=== PATIENT | female | born 1995 | race American Indian/Alaskan Native ===

== ENCOUNTER 2019-11-02 19:06 | Inpatient (IN) | payer BC ==
[~2019-11-02] VITALS: Ht 167.6 cm; Wt 100.0 kg
[2019-11-02] MEDS ORDERED: acetaminophen 325mg tablet PO ONE (19:10)
[2019-11-02] MEDS ORDERED: normal saline 1000ml 1,000 ML IVB ONE (19:47)
[2019-11-02 20:05] LABS: BASOPHILS % (AUTO) 0.1 % (0-1); EOSINOPHILS % (AUTO) 0 % (0-6); HEMATOCRIT 43.9 % (35.0-45.0); LYMPHOCYTES # (AUTO) 0.9 X10'3 (1.1-4.8); LYMPHOCYTES % (AUTO) 4.9 % (21-51); MEAN CORPUSCULAR HEMOGLOBIN 29.7 PG (27.0-31.0); MEAN CORPUSCULAR HGB CONC 34.1 g/dL (33.0-36.5); MEAN CORPUSCULAR VOLUME 87.2 FL (78-98); MEAN PLATELET VOLUME 9.1 FL (7.4-10.4); MONOCYTES # (AUTO) 0.7 X10'3 (0-0.9); MONOCYTES % (AUTO) 4.2 % (2-12); NEUTROPHILS # (AUTO) 15.8 X10'3 (1.8-7.7); NEUTROPHILS % (AUTO) 90.8 % (42-75); PLATELET COUNT 220 X10'3 (140-440); RED BLOOD COUNT 5.04 X10'6 (4.20-5.60); RED CELL DISTRIBUTION WIDTH 13.9 % (11.5-14.5); WHITE BLOOD COUNT 17.4 X10'3 (4.5-11.0)
[2019-11-02 20:20] LABS: ALANINE AMINOTRANSFERASE 85 U/L (12-78); ALBUMIN/GLOBULIN RATIO 0.7 (1.1-1.5); ALKALINE PHOSPHATASE 122 IU/L (46-116); ANION GAP 14 (8-16); ASPARTATE AMINO TRANSFERASE 48 U/L (10-37); BILIRUBIN,TOTAL 2.2 MG/DL (0.1-1.0); BLOOD UREA NITROGEN 13 MG/DL (7-18); BUN/CREATININE RATIO 11.2 (6.6-38.0); CALCIUM 9.5 MG/DL (8.5-10.1); CHLORIDE 94 MMOL/L (99-107); CREATININE 1.16 MG/DL (0.40-0.90); GLUCOSE 179 MG/DL (70-104); POTASSIUM 3.3 MMOL/L (3.5-5.1); SODIUM 132 MMOL/L (135-145); TOTAL CARBON DIOXIDE 24.4 MMOL/L (24-32); TOTAL PROTEIN 9.5 G/DL (6.4-8.2); eGFR 56 ML/MIN
[2019-11-02] MEDS ORDERED: piperacillin/tazo 3.375gm/50ml 50 ML IV ONE (20:40)
[2019-11-02] MEDS ORDERED: normal saline 1000ML IV soln IVB ONE (20:45)
--- NOTE | 2019-11-02 20:49 | NUR ---
U/S CALLED BACK AT 20:[address] IN
[2019-11-02 20:50] LABS: C-REACTIVE PROTEIN 19.91 MG/DL (0.0-0.5); LACTATE DEHYDROGENASE 228 U/L (81-234)
[2019-11-02 22:17] LABS: LIPASE 53 U/L (73-393)
[2019-11-02] MEDS ORDERED: morphine 4 MG/ML inj SYRINge IV ONE (22:25)
[2019-11-02] MEDS ORDERED: ondansetron/PF 4mg/2ml inj IV ONE (22:50)
[2019-11-02] MEDS ORDERED: magnesium hydroxide 30ml (MOM) UD suspension PO PRN (23:15)
[2019-11-02] MEDS ORDERED: magnesium 4gm in 100ml NS 100 ML IV PRN (23:15)
[2019-11-02] MEDS ORDERED: mag hydrox/Alum hydrox/simeth 30ml oral suspension PO PRN (23:15)
[2019-11-02] MEDS ORDERED: ondansetron/PF 4mg/2ml inj IV PRN (23:15)
[2019-11-02] MEDS ORDERED: potassium CL 10mEq/100ml bag 100 ML IV PRN ×2 (23:15)
[2019-11-02] MEDS ORDERED: morphine 2 MG/ML inj. syringe IV PRN ×2 (23:15)
[2019-11-02] MEDS ORDERED: HYDROcodone/acetaminophen 5mg/325mg tablet PO PRN (23:15)
[2019-11-02] MEDS ORDERED: acetaminophen 325mg tablet PO PRN ×2 (23:15)
[2019-11-02] MEDS ORDERED: potassium Cl 20 mEq SR tablet PO PRN (23:15)
[2019-11-02] MEDS ORDERED: magnesium Cl slow-release 64mg tablet PO PRN (23:15)
[2019-11-02] MEDS ORDERED: magnesium 2GM in 50ml NS 50 ML IV PRN (23:15)
[2019-11-02 23:29] LABS: URINE HCG NEGATIVE (NEG)
[2019-11-02 23:41] LABS: CLARITY,URINE SLIGHTLY CLOUDY (Clear); COLOR,URINE YELLOW (Yellow); GLUCOSE, URINE NEGATIVE (Neg); KETONES,URINE TRACE mg/dl (Neg); LEUKOCYTE ESTERASE ,URINE TRACE (Neg); NITRITES, URINE NEGATIVE (Neg); OCCULT BLOOD,URINE MODERATE (Neg); PROTEIN,URINE NEGATIVE (Neg)
[2019-11-02] MEDS: normal saline 1000ml 1,000 ML IV SCH (23:41)
[2019-11-02 23:42] LABS: UA COLLECTION TYPE CLN CATCH MIDSTREAM
[2019-11-02] MEDS: piperacillin/tazo 3.375gm/50ml 50 ML IV SCH (23:42)
[2019-11-02] MEDS ORDERED: NO HOME MEDS (23:45)
[2019-11-03 00:11] LABS: BACTERIA,URINE 1+ /HPF (Neg); MUCUS STRANDS FEW /LPF (Neg); SQUAMOUS EPITHELIAL CELL,UR MANY /LPF (FEW); WBC,URINE 0-4 /HPF (0-4)
[2019-11-03 01:30] VITALS: BP 136/74
[2019-11-03 04:47] LABS: BASOPHILS % (AUTO) 0.1 % (0-1); EOSINOPHILS % (AUTO) 0 % (0-6); HEMATOCRIT 35.7 % (35.0-45.0); HEMOGLOBIN 11.9 g/dl (12.0-16.0); LYMPHOCYTES # (AUTO) 0.9 X10'3 (1.1-4.8); LYMPHOCYTES % (AUTO) 7.4 % (21-51); MEAN CORPUSCULAR HEMOGLOBIN 29.1 PG (27.0-31.0); MEAN CORPUSCULAR HGB CONC 33.2 g/dL (33.0-36.5); MEAN CORPUSCULAR VOLUME 87.6 FL (78-98); MEAN PLATELET VOLUME 8.9 FL (7.4-10.4); MONOCYTES # (AUTO) 0.9 X10'3 (0-0.9); MONOCYTES % (AUTO) 7.5 % (2-12); NEUTROPHILS # (AUTO) 10.1 X10'3 (1.8-7.7); PLATELET COUNT 175 X10'3 (140-440); RED BLOOD COUNT 4.07 X10'6 (4.20-5.60); RED CELL DISTRIBUTION WIDTH 13.9 % (11.5-14.5); WHITE BLOOD COUNT 11.9 X10'3 (4.5-11.0)
[2019-11-03 04:57] LABS: ALANINE AMINOTRANSFERASE 60 U/L (12-78); ALBUMIN 2.9 G/DL (3.4-5.0); ALBUMIN/GLOBULIN RATIO 0.7 (1.1-1.5); ALKALINE PHOSPHATASE 93 IU/L (46-116); ANION GAP 9 (8-16); ASPARTATE AMINO TRANSFERASE 31 U/L (10-37); BILIRUBIN,TOTAL 1.4 MG/DL (0.1-1.0); BLOOD UREA NITROGEN 8 MG/DL (7-18); CALCIUM 8.1 MG/DL (8.5-10.1); CHLORIDE 105 MMOL/L (99-107); CHOL/HDL RATIO 6.5 (0.00-4.99); CHOLESTEROL 150 MG/DL (0-200); GLUCOSE 137 MG/DL (70-104); HDL CHOLESTEROL 23 MG/DL (35-60); LDL CHOLESTEROL 98 MG/DL (50-100); MAGNESIUM 1.8 MG/DL (1.5-2.4); POTASSIUM 3.3 MMOL/L (3.5-5.1); SODIUM 137 MMOL/L (135-145); TOTAL CARBON DIOXIDE 22.7 MMOL/L (24-32); TRIGLYCERIDES 99 MG/DL (20-135); eGFR 87 ML/MIN
--- NOTE | 2019-11-03 05:36 | NUR ---
NURSING ASSESSMENT REVIEWED Addendum: 11/03/19 at 0536 by Liya Mancuso RN Amended: Links added.
--- NOTE | 2019-11-03 06:36 | NUR ---
Problems reprioritized. Patient report given, questions answered & plan of care reviewed with Emmie DANIELLE.
--- NOTE | 2019-11-03 06:39 | NUR ---
Patient in room [facility]. I have received report from howard simmons and had the opportunity to ask questions and assume patient care.
[2019-11-03 07:00] VITALS: BP 128/72
[2019-11-03] MEDS: piperacillin/tazo 3.375gm/50ml 50 ML IV SCH ×2 (07:53→16:35)
[2019-11-03] MEDS: pantoprazole 40mg Tablet.DR PO SCH (07:55)
[2019-11-03] MEDS: potassium Cl 20 mEq SR tablet PO PRN ×3 (07:55→20:46)
[2019-11-03] MEDS: K and/or MAG REPLACEMENT MC SCH ×2 (08:00→20:00)
[2019-11-03] MEDS: heparin, porcine 5000 units/ml vial SQ SCH ×2 (08:00→20:46)
[2019-11-03] MEDS: normal saline 1000ml 1,000 ML IV SCH ×2 (08:05→16:38)
[2019-11-03] MEDS ORDERED: sincalide inj 2 MCG in normal saline 50ml IV soln 50 ML IV ONE (11:35)
[2019-11-03] MEDS: HYDROcodone/acetaminophen 10/325mg tab PO PRN (16:34)
--- NOTE | 2019-11-03 17:49 | NUR ---
PATIENT C/O HEADACHE. MEDICATED X2 WITH EFFECT.SEEN BY DR CARTER AND DR STOVER. WENT FOR HIDA SCAN. RESTING NOW WITH COLD WASH CLOTH TO FOREHEAD. WILL CONTINUE TO MONITOR. NPO AFTER MIDNIGHT
[2019-11-03 18:00] VITALS: BP 122/71
--- NOTE | 2019-11-03 18:30 | NUR ---
Patient in room [facility]. I have received report from ROSA and had the opportunity to ask questions and assume patient care. ASSUMED CARE OF PT WITH RN STUDENT EDIN Balderas
--- NOTE | 2019-11-03 18:49 | NUR ---
Problems reprioritized. Patient report given, questions answered & plan of care reviewed with DEBORAH DANIELLE.
[2019-11-03 19:00] VITALS: BP 122/71
[2019-11-04] VITALS: BP 126/78
[2019-11-04] MEDS: piperacillin/tazo 3.375gm/50ml 50 ML IV SCH ×4 (00:14→23:47)
[2019-11-04] MEDS: normal saline 1000ml 1,000 ML IV SCH ×4 (00:18→21:34)
--- NOTE | 2019-11-04 04:08 | NUR ---
Student Medication Administration: For this medication-pass time frame, all medication were reviewed, dispensed, administered and documented per hospital policy by EDIN Balderas
--- NOTE | 2019-11-04 04:08 | NUR ---
Student documentation: I have reviewed and agree with all interventions, assessments performed and documented by EDIN Balderas
[2019-11-04 04:58] LABS: BASOPHILS % (AUTO) 0.1 % (0-1); EOSINOPHILS % (AUTO) 0 % (0-6); HEMATOCRIT 36.3 % (35.0-45.0); HEMOGLOBIN 12.2 g/dl (12.0-16.0); LYMPHOCYTES # (AUTO) 1.4 X10'3 (1.1-4.8); MEAN CORPUSCULAR HEMOGLOBIN 29.5 PG (27.0-31.0); MEAN CORPUSCULAR HGB CONC 33.7 g/dL (33.0-36.5); MEAN CORPUSCULAR VOLUME 87.7 FL (78-98); MONOCYTES # (AUTO) 0.6 X10'3 (0-0.9); NEUTROPHILS % (AUTO) 70.9 % (42-75); PLATELET COUNT 148 X10'3 (140-440); RED BLOOD COUNT 4.13 X10'6 (4.20-5.60); RED CELL DISTRIBUTION WIDTH 14.2 % (11.5-14.5)
[2019-11-04 05:12] LABS: ALANINE AMINOTRANSFERASE 63 U/L (12-78); ALBUMIN/GLOBULIN RATIO 0.7 (1.1-1.5); ALKALINE PHOSPHATASE 95 IU/L (46-116); ANION GAP 11 (8-16); ASPARTATE AMINO TRANSFERASE 45 U/L (10-37); BILIRUBIN,TOTAL 0.9 MG/DL (0.1-1.0); BLOOD UREA NITROGEN 6 MG/DL (7-18); BUN/CREATININE RATIO 7.3 (6.6-38.0); CALCIUM 8.7 MG/DL (8.5-10.1); CHLORIDE 99 MMOL/L (99-107); CREATININE 0.82 MG/DL (0.40-0.90); GLUCOSE 113 MG/DL (70-104); MAGNESIUM 1.9 MG/DL (1.5-2.4); POTASSIUM 3.7 MMOL/L (3.5-5.1); SODIUM 133 MMOL/L (135-145); TOTAL CARBON DIOXIDE 23.2 MMOL/L (24-32); TOTAL PROTEIN 7.5 G/DL (6.4-8.2); eGFR 84 ML/MIN
--- NOTE | 2019-11-04 06:41 | NUR ---
Patient in room [facility]. I have received report from LOLIS CABRERA and had the opportunity to ask questions and assume patient care.
[2019-11-04] MEDS: pantoprazole 40mg Tablet.DR PO SCH (07:40)
[2019-11-04] MEDS: HYDROcodone/acetaminophen 10/325mg tab PO PRN (07:41)
[2019-11-04] MEDS: heparin, porcine 5000 units/ml vial SQ SCH ×2 (07:51→21:33)
[2019-11-04 08:00] VITALS: BP 120/81
[2019-11-04] MEDS: K and/or MAG REPLACEMENT MC SCH ×2 (08:00→20:00)
[2019-11-04 11:00] VITALS: BP 100/62
--- NOTE | 2019-11-04 18:30 | NUR ---
Patient in room [facility]. I have received report from [place] and had the opportunity to ask questions and assume patient care. ASSUMED CARE OF PT WITH RN STUDENT EDIN Balderas
--- NOTE | 2019-11-04 18:36 | NUR ---
Problems reprioritized. Patient report given, questions answered & plan of care reviewed with LOLIS CABRERA.
[2019-11-04 20:00] VITALS: BP 123/76
[2019-11-04] MEDS: lactobacillus rhamnosus 10,000 MMU CELLS/CAPSULE PO SCH (21:40)
[2019-11-05] VITALS (23 sets, daily range): BP systolic 106–137; BP diastolic 66–89
--- NOTE | 2019-11-05 03:32 | NUR ---
Student documentation: I have reviewed and agree with all interventions, assessments performed and documented by EDIN Solares Medication Administration: For this medication-pass time frame, all medication were reviewed, dispensed, administered and documented per hospital policy by EDIN Balderas
[2019-11-05 05:07] LABS: BASOPHILS % (AUTO) 0.2 % (0-1); EOSINOPHILS % (AUTO) 0.3 % (0-6); HEMATOCRIT 36.9 % (35.0-45.0); HEMOGLOBIN 12.3 g/dl (12.0-16.0); LYMPHOCYTES # (AUTO) 1.6 X10'3 (1.1-4.8); LYMPHOCYTES % (AUTO) 34.6 % (21-51); MEAN CORPUSCULAR HEMOGLOBIN 29.4 PG (27.0-31.0); MEAN CORPUSCULAR HGB CONC 33.4 g/dL (33.0-36.5); MEAN CORPUSCULAR VOLUME 87.8 FL (78-98); MONOCYTES # (AUTO) 0.5 X10'3 (0-0.9); MONOCYTES % (AUTO) 11.4 % (2-12); NEUTROPHILS # (AUTO) 2.4 X10'3 (1.8-7.7); NEUTROPHILS % (AUTO) 53.5 % (42-75); PLATELET COUNT 165 X10'3 (140-440); RED CELL DISTRIBUTION WIDTH 14.1 % (11.5-14.5); WHITE BLOOD COUNT 4.6 X10'3 (4.5-11.0)
[2019-11-05 05:11] LABS: ALANINE AMINOTRANSFERASE 82 U/L (12-78); ALBUMIN 2.8 G/DL (3.4-5.0); ALBUMIN/GLOBULIN RATIO 0.6 (1.1-1.5); ALKALINE PHOSPHATASE 99 IU/L (46-116); ANION GAP 8 (8-16); ASPARTATE AMINO TRANSFERASE 65 U/L (10-37); BILIRUBIN,TOTAL 0.5 MG/DL (0.1-1.0); BLOOD UREA NITROGEN 7 MG/DL (7-18); BUN/CREATININE RATIO 8.9 (6.6-38.0); CALCIUM 8.5 MG/DL (8.5-10.1); CHLORIDE 103 MMOL/L (99-107); CREATININE 0.79 MG/DL (0.40-0.90); GLUCOSE 102 MG/DL (70-104); MAGNESIUM 2.2 MG/DL (1.5-2.4); POTASSIUM 3.4 MMOL/L (3.5-5.1); SODIUM 136 MMOL/L (135-145); TOTAL CARBON DIOXIDE 24.6 MMOL/L (24-32); TOTAL PROTEIN 7.2 G/DL (6.4-8.2); eGFR 88 ML/MIN
[2019-11-05] MEDS: normal saline 1000ml 1,000 ML IV SCH ×3 (05:15→23:16)
--- NOTE | 2019-11-05 06:22 | NUR ---
Problems reprioritized. Patient report given, questions answered & plan of care reviewed with SONDRA.
[2019-11-05] MEDS ORDERED: ringers solution, lacted 1,000 ML IV SCH (06:31)
[2019-11-05] MEDS ORDERED: morphine 4 MG/ML inj SYRINge IV PRN (06:35)
[2019-11-05] MEDS ORDERED: labetalol 20mg/4ml (5mg/ml) syringe IV PRN (06:35)
[2019-11-05] MEDS ORDERED: morphine 2 MG/ML inj. syringe IV PRN (06:35)
[2019-11-05] MEDS ORDERED: fentaNYL/PF 50MCG/1 ML 2ML syringe IV PRN ×4 (06:35)
[2019-11-05] MEDS ORDERED: ondansetron/PF 4mg/2ml inj IV PRN (06:35)
[2019-11-05] MEDS ORDERED: hydrALAZINE 20mg/ml inj. IV PRN (06:35)
--- NOTE | 2019-11-05 06:36 | NUR ---
Received report from Larissa DANIELLE
[2019-11-05] MEDS: heparin, porcine 5000 units/ml vial SQ SCH ×2 (06:43→19:53)
[2019-11-05] MEDS: pantoprazole 40mg Tablet.DR PO SCH (06:43)
[2019-11-05] MEDS: lactobacillus rhamnosus 10,000 MMU CELLS/CAPSULE PO SCH ×2 (06:43→19:52)
[2019-11-05] MEDS: piperacillin/tazo 3.375gm/50ml 50 ML IV SCH ×2 (08:03→18:47)
[2019-11-05] MEDS: K and/or MAG REPLACEMENT MC SCH ×2 (08:40→19:47)
[2019-11-05] MEDS ORDERED: INDOCYANINE GREEN 25 MG/10 ML VIAL IV ONE (09:30)
[2019-11-05] MEDS ORDERED: BUPIVAcaine/PF 2.5 mg/ml (0.25%) 30ml vial ONE (11:46)
[2019-11-05] MEDS ORDERED: LIDOcaine 1% 30ml preserv. free vial ONE (11:46)
--- NOTE | 2019-11-05 14:04 | NUR ---
RECIEVED FROM OR VIA BED ACCOMPANIED BY ANESTHESIOLOGIST DR LEARY, REPORT GIVEN. BANDAIDS X4 TO ABD CDI, 20 GAUGE PIV RUE PATENT AND RUNNING LR AT 100 ML/HR. MCKENNA, AWAKE AND ALERT, DENIES PAIN, ABD SOFT, VSS.
[2019-11-05] MEDS ORDERED: HYDROcodone/acetaminophen 10/325mg tab PO PRN (14:20)
[2019-11-05] MEDS ORDERED: HYDROcodone/acetaminophen 5mg/325mg tablet PO PRN (14:20)
--- NOTE | 2019-11-05 15:44 | NUR ---
TRANSFERRED VIA BED ACCOMPANIED BY MYSELF, REPORT GIVEN. BANDAIDS X4 TO ABD CDI, 20 GAUGE PIV RAC PATENT AND RUNNING LR AT 100 ML/HR. MCKENNA, AWAKE AND ALERT, DENIES PAIN, ABD SOFT, VSS. PAIN LEVEL AT 4. LEFT IN CARE OF PLAYBACK OPERATOR
--- NOTE | 2019-11-05 17:40 | NUR ---
Patient arrived to the unit, stable, walked to bed adlib and steady on her feet. Addendum: 11/05/19 at 1741 by Lakeshia Wray RN Wrong patient
--- NOTE | 2019-11-05 18:31 | NUR ---
Patient in room [facility]. I have received report from Lakeshia DANIELLE and had the opportunity to ask questions and assume patient care.
--- NOTE | 2019-11-05 18:36 | NUR ---
Problems reprioritized. Patient report given, questions answered & plan of care reviewed with Lidia DANIELLE.
[2019-11-05] MEDS: potassium Cl 20 mEq SR tablet PO PRN (19:52)
[2019-11-05] MEDS: HYDROcodone/acetaminophen 10/325mg tab PO PRN (22:40)
[2019-11-06] MEDS: piperacillin/tazo 3.375gm/50ml 50 ML IV SCH ×2 (00:09→07:50)
[2019-11-06 00:19] VITALS: BP 111/75
[2019-11-06 04:00] VITALS: BP 100/66
[2019-11-06] MEDS: normal saline 1000ml 1,000 ML IV SCH (04:11)
[2019-11-06 05:33] LABS: BASOPHILS % (AUTO) 0.2 % (0-1); EOSINOPHILS % (AUTO) 0 % (0-6); HEMOGLOBIN 11.6 g/dl (12.0-16.0); LYMPHOCYTES # (AUTO) 1.4 X10'3 (1.1-4.8); LYMPHOCYTES % (AUTO) 27.1 % (21-51); MEAN CORPUSCULAR HEMOGLOBIN 30.2 PG (27.0-31.0); MEAN CORPUSCULAR HGB CONC 34.1 g/dL (33.0-36.5); MEAN CORPUSCULAR VOLUME 88.4 FL (78-98); MEAN PLATELET VOLUME 8.9 FL (7.4-10.4); MONOCYTES # (AUTO) 0.5 X10'3 (0-0.9); NEUTROPHILS # (AUTO) 3.1 X10'3 (1.8-7.7); NEUTROPHILS % (AUTO) 61.7 % (42-75); PLATELET COUNT 193 X10'3 (140-440); RED BLOOD COUNT 3.85 X10'6 (4.20-5.60); RED CELL DISTRIBUTION WIDTH 14.5 % (11.5-14.5)
[2019-11-06 05:47] LABS: ALANINE AMINOTRANSFERASE 112 U/L (12-78); ALBUMIN 2.6 G/DL (3.4-5.0); ALBUMIN/GLOBULIN RATIO 0.6 (1.1-1.5); ALKALINE PHOSPHATASE 120 IU/L (46-116); ANION GAP 9 (8-16); ASPARTATE AMINO TRANSFERASE 80 U/L (10-37); BILIRUBIN,TOTAL 0.5 MG/DL (0.1-1.0); BLOOD UREA NITROGEN 6 MG/DL (7-18); BUN/CREATININE RATIO 9.7 (6.6-38.0); CALCIUM 8.7 MG/DL (8.5-10.1); CHLORIDE 106 MMOL/L (99-107); CREATININE 0.62 MG/DL (0.40-0.90); GLUCOSE 117 MG/DL (70-104); MAGNESIUM 2.3 MG/DL (1.5-2.4); POTASSIUM 4.2 MMOL/L (3.5-5.1); SODIUM 139 MMOL/L (135-145); TOTAL CARBON DIOXIDE 24.2 MMOL/L (24-32); TOTAL PROTEIN 6.9 G/DL (6.4-8.2); eGFR > 90 ML/MIN
--- NOTE | 2019-11-06 06:36 | NUR ---
Problems reprioritized. Patient report given, questions answered & plan of care reviewed with Kristen DANIELLE.
--- NOTE | 2019-11-06 06:58 | NUR ---
Patient in room [facility]. I have received report from Lidia DANIELLE and had the opportunity to ask questions and assume patient care.
[2019-11-06 07:00] VITALS: BP 114/75
[2019-11-06] MEDS: lactobacillus rhamnosus 10,000 MMU CELLS/CAPSULE PO SCH (07:50)
[2019-11-06] MEDS: pantoprazole 40mg Tablet.DR PO SCH (07:50)
[2019-11-06] MEDS: heparin, porcine 5000 units/ml vial SQ SCH (07:51)
[2019-11-06] MEDS: HYDROcodone/acetaminophen 10/325mg tab PO PRN (07:53)
[2019-11-06] MEDS: K and/or MAG REPLACEMENT MC SCH (08:00)
[2019-11-06] MEDS ORDERED: HYDR-4353 PO (09:55)
[2019-11-06] MEDS ORDERED: magnesium hydroxide 30ml (MOM) UD suspension PO ONE (09:55)
[2019-11-06] MEDS ORDERED: AMOX-422 PO (09:56)
[2019-11-06 10:30] VITALS: BP 101/56
--- NOTE | 2019-11-06 10:46 | NUR ---
Initial: patient is s/p robotic laparoscopic cholecystectomy on 11/04 d/t Cholangitis per surgeon note. On Regular diet, first regular meal this morning PO 50% PO intake. No nutrition problems at this time. Recommend: 1. Continue regular diet 2. bowel care as needed 3. wt per rx Addendum: 11/06/19 at [address] Amended: Links added.
--- NOTE | 2019-11-06 12:00 | NUR ---
Discharge paperwork gone over with patient and signed. Patient was given the opportunity to ask questions. Rx e-scripted to [facility] on [address]. Pt sent to lobby via w/c with all belongings. Family to take pt home.
== END 2019-11-06 11:50 | disposition home or self-care (01) | DRG 418 ==
LOC: ER 19:07 → ED HOLD 23:14 → SUR 3N 11-03 01:05
PROVIDERS: ADMIT Internal Medicine; ATTEND Internal Medicine
PROC: 0FT44ZZ Resection of Gallbladder, Percutaneous Endoscopic Approach (ICD-10-PCS; principal; 2019-11-06)
PROC: BF131ZZ Fluoroscopy of Gallbladder and Bile Ducts using Low Osmolar Contrast (ICD-10-PCS; 2019-11-06)
PROC: 8E0W4CZ Robotic Assisted Procedure of Trunk Region, Percutaneous Endoscopic Approach (ICD-10-PCS; 2019-11-06)
DX: K80.20 Calculus of gallbladder without cholecystitis without obstruction (principal); E87.1 Hypo-osmolality and hyponatremia; K83.09 Other cholangitis; E87.6 Hypokalemia; K76.0 Fatty (change of) liver, not elsewhere classified
CPT/HCPCS: 96365; 99285; Z7506; Z7508; 36415; 71046; 74176; 76700; 78226; 80053; 80061; 81001; 81025; 83605; 83615; 83690; 83735; 84145; 85025; 85610; 86140; 87040; 87081; 87635; A4215; A4618; A7000; A9537; G0378; J1644; J2001; J2270; J2405; J2543; J3490; J7030; J7120